=== PATIENT | female | born 1980 | race Caucasian/White ===

== ENCOUNTER 2017-01-30 01:54 | Emergency (ER) | payer OTHER ==
[2017-01-30 02:07] VITALS: BP 129/76; BMI 45.7
--- NOTE | 2017-01-30 02:35 | DR.URINEF ---
HPI - Time Seen Time seen: 02:35 - PCP Primary Care Physician: beatriz - HPI Comment HPI Comment: PATIENT HAD KIDNEY STONE AND WAS PLACE ON CIPRO WELL. SHE IS ON MEDICATION FOR PAIN WELL. NAUSEATED BUT NOT VOMITING. - Complaint Chief Complaint Doctors Comments: FEVER, LEFT ABDOMINAL PAIN AND SWEATY SINCE . Chief Complaint:: "i passed a kidney stone in the [place] night and since then i have had a temperature of 103.0,chills, sweating, and tenderness left abdomen." Self Treatment fo Chief Complaint: rx - flomax,zofran,oxycodone,cipro ( prescribed ) - Reviewed Nurses Notes Reviewed: Yes - Source History Provided: Patient - Mode of Arrival Mode of Arrival: Ambulatory - Timing Onset of Chief Complaint: 01/26/17 - Duration Duration: Constant Duration: Days - Context Onset: Spontaneous History of: UTI, Kidney Stone - Quality Pain is: Cramping - Severity Pain: Moderate (PAIN MED AT HOME HELPING.) - Location Pain Location: Left, Flank - Associated Signs and Symptoms Associated signs and symptoms: Fever, Nausea, Abdominal Pain, Flank Pain PMH - PMH Past Medical History: Yes Past Medical History: Dyslipidemia, GERD, Kidney Stones Past Surgical History: Yes Surgical History: Cholecystectomy, Hysterectomy - Family History History of Family Medical Conditions: Yes Family Medical History: Cancer, Hypertension - Social History Type of Tobacco Use: Cigarettes Alcohol Use: Occasionally Do you use any recreational Drugs:: No Lives With: Family Lives Where: Home - infectious screening Have you traveled outside the country in the last 6 months?: No Isolation: Standard ROS - Review of Systems Constitutional: No Symptoms Reported, Fever, Weakness, Fatigue Eyes: No Symptoms Reported ENTM: No Symptoms Reported Respiratoy: No Symptoms Reported Cardiovascular: Palpitations Gastrointestinal/Abdominal: Abdominal Pain, Nausea Neurological: Weakness Musculoskeletal: Muscle Pain Integumentary: Other (SWEATY AT HOME) Hematologic/Lymphatic: No Symptoms Reported Endocrine: No Symptoms Reported All Other Systems: Reviewed and Negative PE - Vital Signs Vitals: Temperature 97.7 F Pulse Rate [Apical] 92 Pulse Rate 110 Respiratory Rate 18 Blood Pressure 129/76 O2 Sat by Pulse Oximetry 95 - General Limitations: No Limitations General Appearance: Alert - Head Head Exam: Normal Inspection - Eyes Eye exam: Normal Appearance - ENT ENT Exam: Normal External Ear Exam - Neck Neck Exam: Normal Inspection - Chest Chest Inspection: Symmetric Chest Wall Rise - Respiratory Respiratory Exam: Normal Lung Sounds Bilat Respiratory Exam: Bilateral Clear to Auscultation - Cardiovascular Cardiovascular Exam: Regular Rate, Normal Rhythm, Tachycardia - Abdominal Exam Abdominal Exam: Normal Bowel Sounds, Soft. negative: Tenderness Abdominal Tenderness: Diffuse, Mild - Rectal Rectal Exam: Deferred - Genitourinary External Exam: Female: Deferred : Bimanual Exam (female): Deferred - Extremities Extremities Exam: Normal Inspection - Back Back Exam: (L) CVA Tenderness - Neurologic Neurological Exam: Alert, Oriented X3, CN II-XII Intact - Psychiatric Psychiatric Exam: Normal Affect, Normal Mood - Skin Skin Exam: Normal Color MDM - Additional Information Obtained Additional Information Obtained From: Family - Differential Diagnosis Differential Diagnosis: Pyelonephritis, Urolithiasis, UTI Course - Treatment Treatment: SEE ORDERS. TEMP REMAIN NORMAL AND HR IN 90S. POTASSIUM IN ED. - Consultation Consultation Comments: URINE CULTURE IN [place] NO SIGNICANT GROWTH. - Education/Counseling Education/Counseling: Patient, Family, Education Educated On: Diagnosis, Needs for Follow Up ROR - Labs Reviewed Laboratory Results Reviewed?: Yes Result Diagrams: 01/30/17 02:53 01/30/17 02:53 Laboratory: WBC 8.1 X10^3/uL (3.6-10.0) 01/30/17 02:53 RBC 4.66 X10^6/uL (3.5-5.4) 01/30/17 02:53 Hgb 13.7 g/dL (12.0-16.0) 01/30/17 02:53 Hct 40.7 % (36.0-47.0) 01/30/17 02:53 MCV 87.3 fL (80.0-100.0) 01/30/17 02:53 MCH 29.3 pg (27.0-34.0) 01/30/17 02:53 MCHC 33.5 g/dL (33.0-35.0) 01/30/17 02:53 RDW 14.8 % (11.6-16.5) 01/30/17 02:53 Plt Count 220 X10^3/uL (150.0-450.0) 01/30/17 02:53 MPV 9.9 fL (7.4-11.0) 01/30/17 02:53 Neut % 66.3 % (42.0-75.0) 01/30/17 02:53 Lymph % 25.0 % (21.0-51.0) 01/30/17 02:53 [place] % 5.3 % (0.0-13.0) 01/30/17 02:53 Eos % 2.5 % (0.9-2.9) 01/30/17 02:53 Baso % 0.9 % (0.2-1.0) 01/30/17 02:53 Neut # 5.3 x10^3/uL (2.2-4.8) H 01/30/17 02:53 Lymph # 2.0 X10^3/uL (1.3-2.9) 01/30/17 02:53 [place] # 0.4 x10^3/uL (0.3-0.8) 01/30/17 02:53 Eos # 0.2 x10^3/uL (0.0-0.2) 01/30/17 02:53 Baso # 0.1 X10^3/uL (0.0-0.1) 01/30/17 02:53 Absolute Nucleated RBC 0.0 /100WBC 01/30/17 02:53 Sodium 141 mmol/L (136-145) 01/30/17 02:53 Corrected Sodium TNP 01/30/17 02:53 Potassium 3.3 mmol/L (3.5-5.1) L 01/30/17 02:53 Chloride 103 mmol/L (98-107) 01/30/17 02:53 Carbon Dioxide 28.0 mmol/L (21-32) 01/30/17 02:53 BUN 7 mg/dL (7-18) 01/30/17 02:53 Creatinine 0.86 mg/dL (0.55-1.02) 01/30/17 02:53 Est GFR (MDRD) Af Amer > 60 (>60) 01/30/17 02:53 Est GFR (MDRD) Non-Af > 60 (>60) 01/30/17 02:53 Glucose 105 mg/dL (65-99) H 01/30/17 02:53 Calcium 8.7 mg/dL (8.5-10.1) 01/30/17 02:53 Corrected Calcium 9.7 mg/dL (8.5-10.1) 01/30/17 02:53 Total Bilirubin 0.30 mg/dL (0.2-1.0) 01/30/17 02:53 AST 33 Units/L (15-37) 01/30/17 02:53 ALT 43 Units/L (12-78) 01/30/17 02:53 Alkaline Phosphatase 84 Units/L (46-116) 01/30/17 02:53 Total Protein 7.1 g/dL (6.4-8.2) 01/30/17 02:53 Albumin 2.7 g/dL (3.4-5.0) L 01/30/17 02:53 Globulin 4.4 g/dL (2.5-4.5) 01/30/17 02:53 Albumin/Globulin Ratio 0.6 Ratio (1.1-2.1) L 01/30/17 02:53 Amylase 23 Units/L (25-115) L 01/30/17 02:53 Lipase 119 Units/L (73-393) 01/30/17 02:53 Specimen Type Clean catch urine 01/30/17 02:17 Urine Color Yellow (YELLOW) 01/30/17 02:17 Urine Appearance Hazy (CLEAR) 01/30/17 02:17 Urine pH 6.0 (5.0 - 8.0) 01/30/17 02:17 Ur Specific [place] 1.015 (1.000-1.030) 01/30/17 02:17 Urine Protein 2+ (NEGATIVE) 01/30/17 02:17 Urine Glucose (UA) Negative (NEGATIVE) 01/30/17 02:17 Urine Ketones 1+ (NEGATIVE) 01/30/17 02:17 Urine Occult Blood 3+ (NEGATIVE) 01/30/17 02:17 Urine Nitrite Negative (NEGATIVE) 01/30/17 02:17 Urine Bilirubin Negative (NEGATIVE) 01/30/17 02:17 Urine Urobilinogen 1+ (NORMAL) 01/30/17 02:17 Ur Leukocyte Esterase 1+ (NEGATIVE) 01/30/17 02:17 Urine RBC 2-6 /HPF (NEGATIVE) 01/30/17 02:17 Urine WBC 1-4 /HPF (NEGATIVE) 01/30/17 02:17 Ur Squamous Epith Cells Moderate /HPF (NEGATIVE) 01/30/17 02:17 Urine Bacteria Trace /HPF (NEGATIVE) 01/30/17 02:17 Urine Mucus Few /HPF (NEGATIVE) 01/30/17 02:17 Ur Culture Indicated? No/not indicated 01/30/17 02:17 - Diagnosis Discharge Problem: Kidney stone UTI (urinary tract infection) Qualifiers: Urinary tract infection type: site unspecified Hematuria presence: with hematuria Qualified Code(s): N39.0 - Urinary tract infection, site not specified - Discharge Plan Disposition: 01 HOME, SELF-CARE Condition: Stable - Follow ups/Referrals Follow ups/Referrals: ERASTO AMATO [Primary Care Provider] - 01/31/17 - Instructions Instructions: Flank Pain, Kidney Stones Additional Instructions: RETURN TO ED IF WORSE. CONTINUE CURRENT ANTIBIOTIC.
[2017-01-30 03:01] LABS: BILIRUBIN,URINE NEGATIVE (NEGATIVE); BLOOD/HEMOGLOBIN,URINE 3+ (NEGATIVE); GLUCOSE, URINE NEGATIVE (NEGATIVE); KETONES,URINE 1+ (NEGATIVE); LEUKOCYTE ESTERASE ,URINE 1+ (NEGATIVE); NITRITES,URINE NEGATIVE (NEGATIVE); PROTEIN,URINE 2+ (NEGATIVE); UROBILINOGEN,URINE 1+ (NORMAL)
[2017-01-30 03:10] LABS: BASOPHILS # (AUTO) 0.1 X10^3/uL (0.0-0.1); BASOPHILS % (AUTO) 0.9 % (0.2-1.0); EOSINOPHILS # (AUTO) 0.2 x10^3/uL (0.0-0.2); EOSINOPHILS % (AUTO) 2.5 % (0.9-2.9); HEMATOCRIT 40.7 % (36.0-47.0); HEMOGLOBIN 13.7 g/dL (12.0-16.0); MEAN CORPUSCULAR HEMOGLOBIN 29.3 pg (27.0-34.0); MEAN CORPUSCULAR HGB CONC 33.5 g/dL (33.0-35.0); MEAN CORPUSCULAR VOLUME 87.3 fL (80.0-100.0); MEAN PLATELET VOLUME 9.9 fL (7.4-11.0); MONOCYTES # (AUTO) 0.4 x10^3/uL (0.3-0.8); MONOCYTES % (AUTO) 5.3 % (0.0-13.0); NEUTROPHILS # (AUTO) 5.3 x10^3/uL (2.2-4.8); NEUTROPHILS % (AUTO) 66.3 % (42.0-75.0); PLATELET COUNT 220 X10^3/uL (150.0-450.0); RED BLOOD COUNT 4.66 X10^6/uL (3.5-5.4); RED CELL DISTRIBUTION WIDTH 14.8 % (11.6-16.5); WHITE BLOOD COUNT 8.1 X10^3/uL (3.6-10.0)
[2017-01-30 03:14] LABS: APPEARANCE,URINE HAZY (CLEAR); BACTERIA,URINE TRACE /HPF (NEGATIVE); COLOR,URINE YELLOW (YELLOW); MUCUS,URINE FEW /HPF (NEGATIVE); SQUAMOUS EPITHELIAL CELL,UR MODERATE /HPF (NEGATIVE)
[2017-01-30 03:21] LABS: ALANINE AMINOTRANSFERASE 43 Units/L (12-78); ALBUMIN 2.7 g/dL (3.4-5.0); ALKALINE PHOSPHATASE 84 Units/L (46-116); AMYLASE 23 Units/L (25-115); ASPARTATE AMINO TRANSFERASE 33 Units/L (15-37); BLOOD UREA NITROGEN 7 mg/dL (7-18); CALCIUM 8.7 mg/dL (8.5-10.1); CHLORIDE 103 mmol/L (98-107); COR CA(FOR HYPOALB) 9.7 mg/dL (8.5-10.1); CREATININE 0.86 mg/dL (0.55-1.02); GLUCOSE 105 mg/dL (65-99); LIPASE 119 Units/L (73-393); SODIUM 141 mmol/L (136-145); TOTAL PROTEIN 7.1 g/dL (6.4-8.2); eGFR BLACK RACES > 60 (>60); eGFR NON BLACK RACES > 60 (>60)
[2017-01-30] MEDS ORDERED: POTASSIUM CHLORIDE LIQ 20 MEQ UDC PO ONE (03:38)
[2017-01-30] MEDS ORDERED: POTASSIUM CHLORIDE LIQ 20 MEQ UDC ONE (03:43)
== END 2017-01-30 04:10 | disposition home or self-care (01) ==
LOC: ER 01:54
DX: N20.0 Calculus of kidney (principal); N39.0 Urinary tract infection, site not specified; R10.84 Generalized abdominal pain
CPT/HCPCS: 36415; 80053; 81001; 82150; 83690; 85025; 87040; 99282; 99283

== ENCOUNTER 2023-11-03 06:57 | Observation (INO) ==
[2023-11-03] MEDS: NOZIN NASAL SANITIZER TP ONE (07:03)
[2023-11-03] MEDS: LR 1,000 ML IV 1,000 ML IV ONE (07:03)
[2023-11-03 09:48] LABS: BASOPHILS # (AUTO) 0.1 X10^3/uL (0.0-0.1); BASOPHILS % (AUTO) 0.8 % (0.2-1.0); EOSINOPHILS # (AUTO) 0.2 x10^3/uL (0.0-0.2); EOSINOPHILS % (AUTO) 1.9 % (0.9-2.9); HEMATOCRIT 41.8 % (36.0-47.0); HEMOGLOBIN 13.6 g/dL (12.0-16.0); LYMPHOCYTES % (AUTO) 29.7 % (21.0-51.0); MEAN CORPUSCULAR HEMOGLOBIN 27.9 pg (27.0-34.0); MEAN CORPUSCULAR HGB CONC 32.4 g/dL (33.0-35.0); MEAN CORPUSCULAR VOLUME 86.2 fL (80.0-100.0); MEAN PLATELET VOLUME 8.9 fL (7.4-11.0); MONOCYTES # (AUTO) 0.6 x10^3/uL (0.3-0.8); MONOCYTES % (AUTO) 4.9 % (0.0-13.0); NEUTROPHILS # (AUTO) 8.3 x10^3/uL (2.2-4.8); NEUTROPHILS % (AUTO) 62.7 % (42.0-75.0); PLATELET COUNT 307 X10^3/uL (150.0-450.0); RED BLOOD COUNT 4.85 X10^6/uL (3.5-5.4); RED CELL DISTRIBUTION WIDTH 15.7 % (11.6-16.5); WHITE BLOOD COUNT 13.3 X10^3/uL (3.6-10.0)
[2023-11-03] MEDS ORDERED: ZOFRAN INJ 4 MG VIAL IVP PRN ×2 (10:04→11:52)
[2023-11-03] MEDS ORDERED: BENADRYL INJ 50 MG VIAL IVP PRN (10:04)
[2023-11-03] MEDS ORDERED: BARHEMSYS INJ IVP PRN (10:04)
[2023-11-03 10:08] LABS: ALANINE AMINOTRANSFERASE 37 Units/L (12-78); ALBUMIN 2.9 g/dL (3.4-5.0); ALKALINE PHOSPHATASE 89 Units/L (46-116); ASPARTATE AMINO TRANSFERASE 27 Units/L (15-37); BLOOD UREA NITROGEN 11 mg/dL (7-18); CARBON DIOXIDE 30.7 mmol/L (21-32); CHLORIDE 102 mmol/L (98-107); COR CA(FOR HYPOALB) 9.9 mg/dL (8.5-10.1); CREATININE 0.84 mg/dL (0.55-1.02); GLUCOSE 107 mg/dL (65-99); SODIUM 140 mmol/L (136-145); eGFR NON BLACK RACES > 60 (>60)
[2023-11-03] MEDS: NS 100 ML IV 100 ML ONE (10:08)
[2023-11-03] MEDS: ANCEF VIAL 1 GRAM ONE (10:08)
[2023-11-03] MEDS ORDERED: ULTANE GAS IN ONE (10:21)
[2023-11-03] MEDS: ZEMURON 100 MG VIAL ONE (10:21)
[2023-11-03] MEDS: BRIDION ONE ×2 (10:21)
[2023-11-03] MEDS: VERSED ONE (10:21)
[2023-11-03] MEDS: OFIRMEV IV 1000 MG VIAL 1,000 MG/100 ML VIAL IV ONE (10:21)
[2023-11-03] MEDS: PEPCID 20 MG VIAL ONE (10:21)
[2023-11-03] MEDS: ZOFRAN INJ 4 MG VIAL ONE (10:21)
[2023-11-03] MEDS: KETAMINE HCL ONE (10:21)
[2023-11-03] MEDS: FENTANYL VIAL INJ 100 mcg ONE (10:21)
[2023-11-03] MEDS: TORADOL 30 MG VIAL ONE (10:21)
[2023-11-03] MEDS: XYLOCAINE 2 % (PLAIN) ONE (10:21)
[2023-11-03] MEDS: DIPRIVAN VIAL 20 ML ONE (10:21)
[2023-11-03] MEDS: DECADRON INJ ONE (10:21)
--- NOTE | 2023-11-03 10:21 | EKG ---
Test Reason : pre-op Blood Pressure : */* mmHG Vent. Rate : 94 BPM Atrial Rate : 94 BPM P-R Int : 156 ms QRS Dur : 84 ms QT Int : 356 ms P-R-T Axes : 48 -10 39 degrees QTc Int : 445 ms Normal sinus rhythm Septal infarct , age undetermined T wave abnormality, consider anterior ischemia Abnormal ECG No previous ECGs available Confirmed by Juan Walsh MD ([id number]) on 11/03/2023 10:21:15 AM Referred By: Confirmed By: Juan Walsh MD
[2023-11-03] MEDS: REGLAN INJ 10 MG VIAL ONE (10:28)
[2023-11-03 10:37] VITALS: BMI 43.9
[2023-11-03] MEDS: MARCAINE 0.5% ONE (10:38)
[2023-11-03] MEDS: POLYMYXIN B SULFATE ONE ×2 (10:38)
[2023-11-03] MEDS: DUONEB 0.5 MG/3 MG (3 mL) NEB ONE (11:26)
[2023-11-03] MEDS ORDERED: PERCOCET TAB 5/325 MG PO PRN (11:52)
[2023-11-03] MEDS: DILAUDID INJ IVP PRN (11:59)
[2023-11-03] MEDS: D5 1/2 NS 1,000 ML 1,000 ML IV SCH (13:15)
[2023-11-03 13:50] VITALS: RESP 20
[2023-11-03] MEDS ORDERED: NS IRRIGATION* 500 ML IR ONE (13:56)
[2023-11-03] MEDS ORDERED: ANCEF VIAL 1 GRAM IVP SCH (14:00)
[2023-11-03] MEDS: ANCEF VIAL 1 GRAM 1 G in NS 100 ML IV 100 ML IV SCH (14:18)
[2023-11-03] MEDS: DILAUDID INJ ONE (14:18)
[2023-11-03] MEDS: MORPHINE SULFATE INJ 4 MG IVP PRN (16:30)
[2023-11-03 17:52] VITALS: BP 112/71; PULSE 66; TEMP 98.2; O2SAT 98
[2023-11-03] MEDS ORDERED: ALDACTONE TAB 25 MG PO SCH (21:00)
[2023-11-04] MEDS ORDERED: FOLIC ACID TAB 1 MG PO SCH (09:00)
[2023-11-04] MEDS ORDERED: MOBIC TAB 15 MG PO SCH (09:00)
[2023-11-04] MEDS ORDERED: ESTRACE PO SCH (09:00)
[2023-11-04] MEDS ORDERED: PriLOSEC PO SCH (09:00)
== END 2023-11-03 19:07 | disposition left against medical advice (07) ==
LOC: SURG1 06:57 → MED/SURG 06:57
PROVIDERS: ADMIT Surgery; ATTEND Surgery
DX: E66.01 Morbid (severe) obesity due to excess calories; K43.0 Incisional hernia with obstruction, without gangrene; Z53.29 Procedure and treatment not carried out because of patient's decision for other reasons; Z68.41 Body mass index [BMI] 40.0-44.9, adult; K66.0 Peritoneal adhesions (postprocedural) (postinfection)